=== PATIENT | male | born 1970 | race Caucasian/White ===

== ENCOUNTER 2021-11-10 07:58 | Day surgery (SDC) | payer OTHER ==
[~2021-11-10] VITALS: Ht 167.6 cm; Wt 115.7 kg
[2021-11-10] MEDS ORDERED: MIDAZOLAM 5 MG/5 ML VIAL ONE (09:04)
[2021-11-10] MEDS ORDERED: fentaNYL citrate 0.05 MG/ML VIAL ONE (09:04)
[2021-11-10] MEDS ORDERED: LIDOCAINE 2% 100 MG/5 ML UJET TP ONE (09:04)
[2021-11-10] MEDS ORDERED: diphenhydrAMINE 50 MG/ML VIAL ONE (09:18)
[2021-11-10] MEDS ORDERED: fentaNYL citrate 0.05 MG/ML VIAL IVP ONE (09:45)
[2021-11-10] MEDS ORDERED: diphenhydrAMINE 50 MG/ML VIAL IVP ONE (09:45)
[2021-11-10] MEDS ORDERED: MIDAZOLAM 2 MG/2 ML VIAL IVP ONE (09:45)
== END 2021-11-10 10:48 | disposition home or self-care (01) ==
LOC: MDS 07:58 → MMU 07:59 → MDS 10:48
PROVIDERS: ATTEND Internal Medicine Gastroenterology
DX: Z12.11 Encounter for screening for malignant neoplasm of colon (principal); I10 Essential (primary) hypertension; F32.9 Major depressive disorder, single episode, unspecified; Z20.822 Contact with and (suspected) exposure to COVID-19; Z79.899 Other long term (current) drug therapy
CPT/HCPCS: 45378; 87426; J1200; J2250; J3010

== ENCOUNTER 2023-02-22 08:51 | Emergency (ER) | payer OTHER ==
[~2023-02-22] VITALS: Ht 167.6 cm; Wt 124.7 kg
[2023-02-22 09:16] VITALS: BP 112/73; PULSE 99; RESP 16; TEMP 98.9; O2SAT 96
[2023-02-22 09:24] VITALS: BP 112/73; PULSE 99; RESP 16; TEMP 98.9; O2SAT 96
[2023-02-22 10:02] LABS: HEMATOCRIT 36.2 % (36-52); MEAN CORPUSCULAR HEMOGLOBIN 30 pg (27-31); MEAN CORPUSCULAR HGB CONC 33 g/dL (33-37); MEAN CORPUSCULAR VOLUME 89.4 fL (80-94); PLATELET COUNT (AUTO) 174 K/uL (140-450); RED BLOOD CELL COUNT(AUTO) 4.05 MIL/uL (4.20-6.10); RED CELL DISTRIBUTION WIDTH 16.7 % (11.6-13.7); WHITE BLOOD COUNT (AUTO) 15.7 K/uL (4.8-10.8)
[2023-02-22 10:33] LABS: ALBUMIN 3.3 g/dL (3.4-5.0); BILIRUBIN,DIRECT 0.6 mg/dL (0.0-0.3); TOTAL BILIRUBIN 1.2 mg/dL (0.0-1.0); TOTAL PROTEIN, SERUM 6.9 g/dL (6.4-8.2)
[2023-02-22 10:34] LABS: ANION GAP 10.1 (8-16); CALCIUM 8.6 mg/dL (8.5-10.1); CARBON DIOXIDE 29.6 mmol/L (21-32); POTASSIUM 4.7 mmol/L (3.5-5.1)
[2023-02-22 10:43] LABS: BASOPHILS % (MANUAL) 0 % (0-2); BLASTS, MANUAL % 0 % (0-0); EOSINOPHILS % (MANUAL) 2 % (0-4); LYMPHOCYTES % (MANUAL) 62 % (20-46); METAMYELOCYTES % 0 % (0-0); MONOCYTES % (MANUAL) 4 % (5-12); MYELOCYTES % 0 % (0-0); OTHER CELLS,MANUAL % 0 (0-0); PROMYELOCYTES % 0 % (0-0)
[2023-02-22 10:44] LABS: PLATELET ESTIMATE ADEQUATE
== END 2023-02-22 10:56 | disposition home or self-care (01) ==
LOC: MED 08:51
DX: K70.9 Alcoholic liver disease, unspecified (principal); D69.6 Thrombocytopenia, unspecified; B34.9 Viral infection, unspecified; Z79.899 Other long term (current) drug therapy
CPT/HCPCS: 36415; 80048; 80076; 85025; 99283